=== PATIENT | male | born 2005 | race Caucasian/White ===

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

== ENCOUNTER 2024-02-23 11:54 | Emergency (ER) | payer OTHER, SELFPAY ==
[2024-02-23 12:15] VITALS: BP 116/67; PULSE 71; RESP 20; TEMP 36.8; O2SAT 98
--- NOTE | 2024-02-23 12:50 | ED_ITS ---
Discharge Plan Disposition Patient Disposition: Home, Self-Care Condition: Good Prescriptions Prescriptions: New doxycycline hyclate 100 mg capsule 100 mg PO BID Qty: 20 0RF triamcinolone acetonide 0.1 % ointment 1 applic topical TID PRN (Reason: rash) Qty: 30 0RF Rx Instructions: apply to rash on wrist Referrals Follow up/Referrals: Fitz Herman APRN [Primary Care Provider] - See instructions Activity Restrictions/Add. Instructions Additional Instructions/Restrictions: Follow up with your Family Doctor if no improvement or any worsening of symptoms Use topical triamcinolone ointment on rash on wrist Follow up with your Family Doctor later this week to get your test results Straight to ER if any life threatening symptoms, worsening of redness or streaks Clinical Impressions Clinical Impression: Rash Instructions Patient Instructions: Triamcinolone Topical, Doxycycline Discharge ED Provider: Maricarmen Lala [facility] [place] HPI General Stated complaint: possible insect bite on right arm Mode of Arrival: Ambulatory Source of Information: Patient Limitations: No Limitations Time Seen by Provider: 02/23/24 12:50 Description of Symptoms (Recalled from Triage Doc. by RN): PATIENT C/O BUG BITE TO RIGHT ARM WITH REDNESS AROUND IT. HE STATES IT STARTED 4 DAYS AGO AND HAS GOTTEN WORSE. HE DENIES PAIN TO AREA BUT STATES IT ITCHES HEENT Symptoms (Recalled from RN notes): No Resp Symptoms (Recalled from RN notes): No Skin Symptoms (Recalled from RN notes): Yes MS Symptoms (Recalled from RN notes): No Functional Status (Recalled from RN notes): WNL History of Present Illness Provider Complaint: Patient states he thinks he was bitten by something not sure if it was a tick or something and it has been itchy and now he has noticed a bulls eye rash around it States that he didnt pull a tick out but [place] have [place]ly [place] it out or something States that he also noticed a rash on his wrist area that is different and appears to have two small bite/sting areas on it and it itches may be poison felipe there States rash on forearm does not itch or burn Related Data Previous Rx's Medication Instructions Recorded doxycycline hyclate 100 mg capsule 100 mg PO BID #20 caps 02/23/24 triamcinolone acetonide 0.1 % 1 applic topical TID PRN rash #30 02/23/24 topical ointment grams Allergies Allergy/AdvReac Type Severity Reaction Status Date / Time No Known Allergies Allergy Verified 11/05/21 16:01 Worker's Comp Is this a Worker's Comp case?: No [facility] Disclaimer: The information contained in this section may have been updated after the patient was seen, as this information can be updated by other users. Medical History (Updated 02/23/24 @ 13:12 by Maricarmen Lala APRN) Migraine Social History Smoking Status: Never smoker alcohol intake: never substance use type: denies use current occupational status: other Travel in the last 8 weeks: None household members: family housing: house ROS Obtained: Yes All systems reviewed & no additional complaints except as documented and Yes Systems reviewed as appropriate & no additional complaints except as documented Constitutional Constitutional: Reports system reviewed and no additional complaints, except as documented and Reports as per HPI ENT Ears, Nose, Mouth, and Throat: Reports system reviewed and no additional complaints, except as documented and Reports as per HPI Cardiovascular Cardiovascular: Reports system reviewed and no additional complaints, except as documented and Reports as per HPI Respiratory Respiratory: Reports system reviewed and no additional complaints, except as documented and Reports as per HPI Gastrointestinal Gastrointestingal: Reports system reviewed and no additional complaints, except as documented and as per HPI Integumentary/Breasts Skin/Breast: Reports system reviewed and no additional complaints, except as documented, Reports as per HPI and Reports other Comments: area on right forearm where he was bitten by something' red round bulls eye like rash Physical Exam General General appearance: alert and in no apparent distress ENT ENT exam: Present mucous membranes moist Respiratory Respiratory exam: Present normal lung sounds bilaterally; Absent respiratory distress or wheezes Cardiovascular Cardiovascular exam: Present regular rate, normal rhythm and normal heart sounds Neurological Exam Neurological exam: Present alert, oriented X3 and normal gait Skin Skin exam: Present rash Expanded Skin Exam Body image: 2 1. red bulls eye like rash noted on right forearm with small streak like area on forearm 2. red itchy like rash with small raised bite like areas noted Medical Decision Making Fabrice Inquiry Pt receiving controlled substance: No Fabrice was queried for this patient: No Vital Signs: 02/23/24 12:15 Temperature 98.3 F Temperature Source Oral Pulse Rate [Left Brachial] 71 Respiratory Rate 20 Blood Pressure [Left Arm] 116/67 Blood Pressure Mean [Left Arm] 83 Blood Pressure Source [Left Arm] Automatic Cuff Blood Pressure Position [Left Arm] Sitting 02 Sat by Pulse Oximetry 98 Oxygen Delivery Method Room Air Medical Decision Narrative: areas not warm to touch, red bulls eye like rash noted on right forearm just below elbow will treat with Doxycycline and have patient follow up with PCP if any worsening of symptom and strict return precautions to the ED if any worsening of symptoms
[2024-02-23 12:56] VITALS: BP 116/67; PULSE 71; RESP 20; TEMP 36.8; O2SAT 98
[2024-02-26 18:09] LABS: Lyme B. burgdorferi PCR Blood Negative (Negative)
== END 2024-02-23 13:19 | disposition home or self-care (01) ==
PROVIDERS: Emergency Provider Nurse Practitioner; PCP Nurse Practitioner Family
DX: R21 Rash and other nonspecific skin eruption (principal)
CPT/HCPCS: 87476; 99212; 99214; G0463